=== PATIENT | male | born 1955 | race Two or more races ===

== ENCOUNTER 2018-01-27 16:00 | Outpatient (CLI) | payer BC ==
[2015-09-01 09:29] VITALS: BMI 26.3
[~2018-01-27 16:00] MED LIST: BAYER CHEWABLE81 MG PO; BENICAR HCT 40-1 TAB PO; CRESTOR20 MG PO
== END 2018-01-27 23:59 | disposition home or self-care (01) ==
LOC: D.MRI 16:00
DX: M54.41 Lumbago with sciatica, right side (principal)